=== PATIENT | male | born 1940 | race Caucasian/White ===

== ENCOUNTER 2023-12-06 13:42 | Inpatient (IN) | payer BC ==
[~2023-12-06] VITALS: Ht 172.7 cm; Wt 53.5 kg
[2023-12-06] VITALS (9 sets, daily range): BP systolic 73–93; BP diastolic 43–64; TEMP 97.3–98.4; O2SAT 96
[2023-12-06] MEDS: ONDANSETRON HCL/PF - ER 4 MG/2 ML VIAL IV ONE (13:50)
[2023-12-06] MEDS ORDERED: ONDANSETRON HCL/PF 4 MG/2 ML VIAL ONE (13:54)
[2023-12-06] MEDS: IV NS 0.9% 500 ML BAG IV ONE (13:55)
[2023-12-06 14:13] LABS: BASOPHILS # (AUTO) 0.1 K/uL (0.0-0.2); EOSINOPHILS # (AUTO) 0.4 K/uL (0.0-0.7); MONOCYTES # (AUTO) 0.5 K/uL (0.1-1.30)
[2023-12-06 14:22] LABS: BASOPHILS % (AUTO) 0.6 % (0.0-2.0); EOSINOPHILS % (AUTO) 4.5 % (0.0-6.0); HEMATOCRIT 21 % (39-51); LYMPHOCYTES # (AUTO) 2.5 K/uL (0.8-4.8); LYMPHOCYTES % (AUTO) 29.3 % (20.0-44.0); MEAN CORPUSCULAR HEMOGLOBIN 33 PG (26.0-33.0); MEAN CORPUSCULAR HGB CONC 32 g/dl (31.0-36.0); MEAN CORPUSCULAR VOLUME 103 fL (80-96); MONOCYTES % (AUTO) 6.1 % (2.0-12.0); NEUTROPHILS # (AUTO) 5.1 K/uL (1.8-8.9); NEUTROPHILS % (AUTO) 59.5 % (43.0-81.0); PLATELET COUNT (AUTO) 186 K/uL (150-450); RED BLOOD CELL COUNT(AUTO) 2.02 MIL/uL (4.5-6.0); RED CELL DISTRIBUTION WIDTH 16.9 % (11.5-15.0); WHITE BLOOD COUNT (AUTO) 8.6 K/uL (4.3-11.0)
[2023-12-06 14:27] LABS: INR 1.18 (0.91-1.10); PARTIAL THROMBOPLASTIN TIME 27.7 SEC (24.3-34.3); PROTHROMBIN TIME 12.4 SECS (9.2-11.1)
[2023-12-06 14:29] LABS: HEMOGLOBIN 6.7 g/dL (13.5-17.5)
[2023-12-06 14:31] LABS: ALANINE AMINOTRANSFERASE 11 U/L (12-78); ALBUMIN 2.1 g/dL (3.4-5.0); ALKALINE PHOSPHATASE 69 U/L (46-116); ASPARTATE AMINOTRANSFERASE 11 U/L (15-37); BILIRUBIN,DIRECT 0.1 mg/dL (0.0-0.2); BILIRUBIN,TOTAL 0.4 mg/dL (0.2-1.0); CALCIUM, SERUM 8.2 mg/dL (8.5-10.1); CARBON DIOXIDE 26 mmol/L (21-32); CHLORIDE 108 mmol/L (98-107); CREATININE 1.5 mg/dL (0.6-1.3); GLUCOSE 120 mg/dL (74-106); POTASSIUM 3.4 mmol/L (3.5-5.1); SODIUM SERUM 142 mmol/L (136-145); TOTAL PROTEIN, SERUM 5.6 g/dL (6.4-8.2); UREA NITROGEN, BLOOD 29 mg/dL (7-18)
[2023-12-06 14:43] LABS: LACTIC ACID 4.7 mmol/L (0.4-2.0)
[2023-12-06] MEDS ORDERED: MIRT-90 PO (15:06)
[2023-12-06] MEDS ORDERED: SENN-261 PO (15:06)
[2023-12-06] MEDS ORDERED: FENT1PAT4 TP (15:06)
[2023-12-06] MEDS ORDERED: APIX2.5T PO (15:06)
[2023-12-06] MEDS ORDERED: METO25TA20 PO (15:06)
[2023-12-06] MEDS: PIPERACILLIN /TAZOBACTAM 3.375 G in IV D5W 50 ML IV ONE (15:15)
[2023-12-06 15:24] LABS: APPEARANCE,URINE Clear (CLEAR); BILIRUBIN,URINE Negative (NEGATIVE); BLOOD, URINE Small Ery/uL (NEGATIVE); COLOR,URINE LIGHT YELLOW (YELLOW); KETONES,URINE Negative (NEGATIVE); LEUKOCYTE ESTERASE ,URINE Small (NEGATIVE); NITRITE, URINE Negative (NEGATIVE); PH,URINE 8.5 (5.0-8.0); PROTEIN,URINE 100 mg/dl (NEGATIVE); UGLUCOSE Negative (NEGATIVE); UROBILINOGEN,URINE 0.2 EU/dL (0.2)
[2023-12-06 15:44] LABS: ADD URINE CULTURE YES; BACTERIA,URINE Few /HPF (None Seen); WBC,URINE 51-80 /HPF (0-3)
[2023-12-06 15:45] LABS: SQUAMOUS EPITHELIAL CELL,UR Few /HPF (None Seen)
[2023-12-06] MEDS: ALBUMIN 25% 12.5 GM/50 ML BOTTLE IV ONE (16:30)
[2023-12-06] MEDS ORDERED: NALOXONE HCL 0.4 MG/ML AMPUL IV PRN (17:30)
[2023-12-06] MEDS: ALBUMIN 25% 25 GM in PREMIX 1 EA IV ONE (18:08)
[2023-12-06 18:30] LABS: EOSINOPHILS % (MANUAL) 3 % (0-4); LYMPHOCYTES % (MANUAL) 25 % (16-48); MONOCYTES % (MANUAL) 5 % (0-11.0); NEUTROPHILS % (MANUAL) 67 (42-76)
[2023-12-06 18:31] LABS: ANISOCYTOSIS 1+; PLATELET ESTIMATE ADEQU
[2023-12-06] MEDS: SENNOSIDES 8.6 MG TABLET PO SCH (21:50)
[2023-12-06] MEDS: MIRTAZAPINE 15 MG TABLET PO SCH (21:50)
[2023-12-06] MEDS: IV NS 0.9% 250 ML IV ONE (23:28)
[2023-12-07] VITALS (92 sets, daily range): BP systolic 66–151; BP diastolic 37–78; TEMP 97.5–98.6; O2SAT 92–100
[2023-12-07] MEDS: NOREPINEPHRINE 8MG/250ML RTU 250 ML IV ONE (02:18)
[2023-12-07] MEDS: NOREPINEPHRINE 8 MG in IV D5W 242 ML IV PRN (02:20)
[2023-12-07 07:47] LABS: BASOPHILS # (AUTO) 0.1 K/uL (0.0-0.2); BASOPHILS % (AUTO) 0.8 % (0.0-2.0); EOSINOPHILS # (AUTO) 0.5 K/uL (0.0-0.7); EOSINOPHILS % (AUTO) 5.3 % (0.0-6.0); LYMPHOCYTES # (AUTO) 1.2 K/uL (0.8-4.8); MEAN CORPUSCULAR HEMOGLOBIN 31 PG (26.0-33.0); MEAN CORPUSCULAR HGB CONC 33 g/dl (31.0-36.0); MEAN CORPUSCULAR VOLUME 95 fL (80-96); MONOCYTES # (AUTO) 0.6 K/uL (0.1-1.30); MONOCYTES % (AUTO) 6.4 % (2.0-12.0); NEUTROPHILS # (AUTO) 6.9 K/uL (1.8-8.9); NEUTROPHILS % (AUTO) 74.5 % (43.0-81.0); PLATELET COUNT (AUTO) 154 K/uL (150-450); RED CELL DISTRIBUTION WIDTH 24.5 % (11.5-15.0); WHITE BLOOD COUNT (AUTO) 9.2 K/uL (4.3-11.0)
[2023-12-07 07:52] LABS: RED BLOOD CELL COUNT(AUTO) 1.65 MIL/uL (4.5-6.0)
[2023-12-07 07:56] LABS: CALCIUM, SERUM 7.4 mg/dL (8.5-10.1); CARBON DIOXIDE 22 mmol/L (21-32); CHLORIDE 108 mmol/L (98-107); CREATININE 1.9 mg/dL (0.6-1.3); GLUCOSE 113 mg/dL (74-106); HEMATOCRIT 16 % (39-51); HEMOGLOBIN 5.1 g/dL (13.5-17.5); MAGNESIUM 1.5 mg/dL (1.8-2.4); PHOSPHORUS 3.1 mg/dL (2.5-4.9); POTASSIUM 4.6 mmol/L (3.5-5.1); SODIUM SERUM 140 mmol/L (136-145); UREA NITROGEN, BLOOD 58 mg/dL (7-18)
[2023-12-07] MEDS: METOPROLOL TARTRATE 25 MG TABLET PO SCH (08:50)
[2023-12-07] MEDS ORDERED: APIXABAN 2.5 MG TABLET PO SCH (09:00)
[2023-12-07 09:19] LABS: EOSINOPHILS % (MANUAL) 4 % (0-4); LYMPHOCYTES % (MANUAL) 12 % (16-48); MONOCYTES % (MANUAL) 6 % (0-11.0); NEUTROPHILS % (MANUAL) 78 (42-76)
[2023-12-07 09:20] LABS: ANISOCYTOSIS 2+; PLATELET ESTIMATE ADEQUATE
[2023-12-07] MEDS: Magnesium 1GM/D5W 100ML PREMIX 100 ML IV SCH (11:41)
[2023-12-07] MEDS: PANTOPRAZOLE 40 MG VIAL IV SCH (14:35)
[2023-12-07 21:20] LABS: HEMOGLOBIN 6.2 g/dL (13.5-17.5)
[2023-12-08] VITALS (109 sets, daily range): BP systolic 90–144; BP diastolic 46–108; TEMP 97.5–98.6; O2SAT 95–100
[2023-12-08 04:10] LABS: BASOPHILS # (AUTO) 0.1 K/uL (0.0-0.2); EOSINOPHILS # (AUTO) 0.5 K/uL (0.0-0.7); EOSINOPHILS % (AUTO) 8.7 % (0.0-6.0); LYMPHOCYTES # (AUTO) 0.5 K/uL (0.8-4.8); MEAN CORPUSCULAR HEMOGLOBIN 32 PG (26.0-33.0); MEAN CORPUSCULAR HGB CONC 34 g/dl (31.0-36.0); MEAN CORPUSCULAR VOLUME 93 fL (80-96); MONOCYTES # (AUTO) 0.5 K/uL (0.1-1.30); MONOCYTES % (AUTO) 7.9 % (2.0-12.0); NEUTROPHILS # (AUTO) 4.7 K/uL (1.8-8.9); NEUTROPHILS % (AUTO) 74.4 % (43.0-81.0); PLATELET COUNT (AUTO) 141 K/uL (150-450); RED CELL DISTRIBUTION WIDTH 21.2 % (11.5-15.0); WHITE BLOOD COUNT (AUTO) 6.3 K/uL (4.3-11.0)
[2023-12-08 04:16] LABS: RED BLOOD CELL COUNT(AUTO) 1.96 MIL/uL (4.5-6.0)
[2023-12-08 04:17] LABS: HEMATOCRIT 18 % (39-51); HEMOGLOBIN 6.2 g/dL (13.5-17.5)
[2023-12-08 04:29] LABS: CALCIUM, SERUM 7.6 mg/dL (8.5-10.1); CARBON DIOXIDE 24 mmol/L (21-32); CHLORIDE 106 mmol/L (98-107); CREATININE 2.4 mg/dL (0.6-1.3); GLUCOSE 139 mg/dL (74-106); MAGNESIUM 1.8 mg/dL (1.8-2.4); SODIUM SERUM 138 mmol/L (136-145); UREA NITROGEN, BLOOD 67 mg/dL (7-18)
[2023-12-08 05:14] LABS: EOSINOPHILS % (MANUAL) 9 % (0-4); LYMPHOCYTES % (MANUAL) 6 % (16-48); MONOCYTES % (MANUAL) 3 % (0-11.0); NEUTROPHILS % (MANUAL) 82 (42-76)
[2023-12-08 05:15] LABS: ANISOCYTOSIS 1+; OVALOCYTES 1+; PLATELET ESTIMATE ADEQUATE
[2023-12-08 08:25] LABS: IRON, SERUM 64 ug/dl (50-175); TOTAL IRON BINDING CAPACITY 103 ug/dl (250-450)
[2023-12-08] MEDS: PANTOPRAZOLE 40 MG VIAL IV SCH (08:35)
[2023-12-08 09:03] LABS: FERRITIN 2684 ng/mL (8-388)
[2023-12-08] MEDS: ACETAMINOPHEN 650 MG/SUPP.RECT RC PRN (16:49)
[2023-12-08] MEDS: HYDROMORPHONE 1 MG/1 ML DISP.SYRIN IV ONE (22:21)
[2023-12-09] VITALS (79 sets, daily range): BP systolic 72–126; BP diastolic 41–91; TEMP 97.5–98.2; O2SAT 94–100
[2023-12-09 06:01] LABS: CALCIUM, SERUM 6.8 mg/dL (8.5-10.1); CARBON DIOXIDE 23 mmol/L (21-32); CHLORIDE 107 mmol/L (98-107); CREATININE 2.6 mg/dL (0.6-1.3); GLUCOSE 90 mg/dL (74-106); MAGNESIUM 2.1 mg/dL (1.8-2.4); PHOSPHORUS 3.5 mg/dL (2.5-4.9); POTASSIUM 4.2 mmol/L (3.5-5.1); SODIUM SERUM 137 mmol/L (136-145); UREA NITROGEN, BLOOD 64 mg/dL (7-18)
[2023-12-09 06:11] LABS: HEPATITIS B CORE AB, IgM Negative (Negative); HEPATITIS B SURFACE AB Non Reactive (.)
[2023-12-09] MEDS: HYDROMORPHONE 1 MG/1 ML DISP.SYRIN IV ONE (06:50)
[2023-12-09] MEDS: FENTANYL TD PATCH (25 MCG/HR) 25 MCG/HR PATCH.TD72 TD SCH (08:35)
[2023-12-09 08:48] LABS: BASOPHILS % (AUTO) 0.7 % (0.0-2.0); EOSINOPHILS # (AUTO) 0.5 K/uL (0.0-0.7); EOSINOPHILS % (AUTO) 6.7 % (0.0-6.0); HEMATOCRIT 24 % (39-51); HEMOGLOBIN 7.9 g/dL (13.5-17.5); LYMPHOCYTES # (AUTO) 0.5 K/uL (0.8-4.8); LYMPHOCYTES % (AUTO) 6.6 % (20.0-44.0); MEAN CORPUSCULAR HEMOGLOBIN 29 PG (26.0-33.0); MEAN CORPUSCULAR HGB CONC 32 g/dl (31.0-36.0); MEAN CORPUSCULAR VOLUME 90 fL (80-96); MONOCYTES # (AUTO) 0.5 K/uL (0.1-1.30); MONOCYTES % (AUTO) 6.7 % (2.0-12.0); NEUTROPHILS # (AUTO) 5.8 K/uL (1.8-8.9); NEUTROPHILS % (AUTO) 79.3 % (43.0-81.0); PLATELET COUNT (AUTO) 124 K/uL (150-450); RED CELL DISTRIBUTION WIDTH 22.4 % (11.5-15.0); WHITE BLOOD COUNT (AUTO) 7.3 K/uL (4.3-11.0)
[2023-12-09] MEDS: HYDROCODONE/APAP 5/325MG TABLET PO PRN (12:06)
[2023-12-09] MEDS: HYDROCODONE/APAP 10/325MG TABLET PO PRN (13:27)
[2023-12-10] VITALS (26 sets, daily range): BP systolic 85–120; BP diastolic 47–80; TEMP 97.5–97.9; O2SAT 91–100
[2023-12-10 05:15] LABS: BASOPHILS % (AUTO) 0.6 % (0.0-2.0); EOSINOPHILS # (AUTO) 0.5 K/uL (0.0-0.7); EOSINOPHILS % (AUTO) 8.8 % (0.0-6.0); HEMATOCRIT 26 % (39-51); HEMOGLOBIN 8.4 g/dL (13.5-17.5); LYMPHOCYTES # (AUTO) 0.4 K/uL (0.8-4.8); LYMPHOCYTES % (AUTO) 7.1 % (20.0-44.0); MEAN CORPUSCULAR HEMOGLOBIN 30 PG (26.0-33.0); MEAN CORPUSCULAR HGB CONC 32 g/dl (31.0-36.0); MEAN CORPUSCULAR VOLUME 92 fL (80-96); MONOCYTES # (AUTO) 0.4 K/uL (0.1-1.30); MONOCYTES % (AUTO) 7.1 % (2.0-12.0); NEUTROPHILS # (AUTO) 4.2 K/uL (1.8-8.9); NEUTROPHILS % (AUTO) 76.4 % (43.0-81.0); PLATELET COUNT (AUTO) 117 K/uL (150-450); RED BLOOD CELL COUNT(AUTO) 2.82 MIL/uL (4.5-6.0); RED CELL DISTRIBUTION WIDTH 23.5 % (11.5-15.0); WHITE BLOOD COUNT (AUTO) 5.5 K/uL (4.3-11.0)
[2023-12-10 05:40] LABS: ALANINE AMINOTRANSFERASE < 6 U/L (12-78); ALBUMIN 2.1 g/dL (3.4-5.0); ALKALINE PHOSPHATASE 74 U/L (46-116); ASPARTATE AMINOTRANSFERASE 9 U/L (15-37); BILIRUBIN,TOTAL 0.3 mg/dL (0.2-1.0); CALCIUM, SERUM 7.7 mg/dL (8.5-10.1); CARBON DIOXIDE 22 mmol/L (21-32); CHLORIDE 109 mmol/L (98-107); CREATININE 3.1 mg/dL (0.6-1.3); GLUCOSE 70 mg/dL (74-106); MAGNESIUM 2.1 mg/dL (1.8-2.4); PHOSPHORUS 4.1 mg/dL (2.5-4.9); POTASSIUM 4.7 mmol/L (3.5-5.1); SODIUM SERUM 142 mmol/L (136-145); TOTAL PROTEIN, SERUM 5.3 g/dL (6.4-8.2); UREA NITROGEN, BLOOD 71 mg/dL (7-18)
[2023-12-10 10:17] LABS: INR 1.16 (0.91-1.10); PARTIAL THROMBOPLASTIN TIME 30.5 SEC (24.3-34.3); PROTHROMBIN TIME 12.2 SECS (9.2-11.1)
[2023-12-10] MEDS: MORPHINE SULFATE INJ 2 MG/ML DISP.SYRIN IV PRN (10:31)
[2023-12-10] MEDS ORDERED: ANESTHESIA TRAY IN PYXIS 1 EA TRAY MC ONE (12:36)
[2023-12-11] VITALS (7 sets, daily range): BP systolic 104–123; BP diastolic 52–64; TEMP 97.2–98.6; O2SAT 98–100
[2023-12-11 06:02] LABS: BASOPHILS % (AUTO) 0.6 % (0.0-2.0); EOSINOPHILS # (AUTO) 0.1 K/uL (0.0-0.7); EOSINOPHILS % (AUTO) 2.2 % (0.0-6.0); HEMATOCRIT 26 % (39-51); HEMOGLOBIN 8.5 g/dL (13.5-17.5); LYMPHOCYTES # (AUTO) 0.2 K/uL (0.8-4.8); MEAN CORPUSCULAR HEMOGLOBIN 30 PG (26.0-33.0); MEAN CORPUSCULAR HGB CONC 33 g/dl (31.0-36.0); MEAN CORPUSCULAR VOLUME 91 fL (80-96); MONOCYTES # (AUTO) 0.4 K/uL (0.1-1.30); MONOCYTES % (AUTO) 6.5 % (2.0-12.0); NEUTROPHILS # (AUTO) 5.4 K/uL (1.8-8.9); NEUTROPHILS % (AUTO) 86.7 % (43.0-81.0); PLATELET COUNT (AUTO) 117 K/uL (150-450); RED BLOOD CELL COUNT(AUTO) 2.87 MIL/uL (4.5-6.0); RED CELL DISTRIBUTION WIDTH 22.9 % (11.5-15.0); WHITE BLOOD COUNT (AUTO) 6.3 K/uL (4.3-11.0)
[2023-12-11 06:18] LABS: ALANINE AMINOTRANSFERASE 6 U/L (12-78); ALBUMIN 2.2 g/dL (3.4-5.0); ALKALINE PHOSPHATASE 83 U/L (46-116); ASPARTATE AMINOTRANSFERASE 10 U/L (15-37); BILIRUBIN,TOTAL 0.3 mg/dL (0.2-1.0); CALCIUM, SERUM 7.6 mg/dL (8.5-10.1); CARBON DIOXIDE 26 mmol/L (21-32); CHLORIDE 107 mmol/L (98-107); CREATININE 2.4 mg/dL (0.6-1.3); GLUCOSE 67 mg/dL (74-106); MAGNESIUM 1.9 mg/dL (1.8-2.4); PHOSPHORUS 3.2 mg/dL (2.5-4.9); SODIUM SERUM 142 mmol/L (136-145); TOTAL PROTEIN, SERUM 5.5 g/dL (6.4-8.2); UREA NITROGEN, BLOOD 48 mg/dL (7-18)
[2023-12-11] MEDS: PANTOPRAZOLE 40 MG TABLET.DR PO SCH (16:09)
[2023-12-12 07:30] VITALS: BP 105/66; TEMP 97.9; O2SAT 100
[2023-12-12 14:22] VITALS: O2SAT 98
[2023-12-12 16:00] VITALS: BP 90/52; TEMP 98.1; O2SAT 99
[2023-12-12] MEDS: APIXABAN 2.5 MG TABLET PO SCH (16:55)
[2023-12-12 20:00] VITALS: BP 96/53; TEMP 98.4; O2SAT 98
[2023-12-12 20:59] VITALS: BP 104/67
[2023-12-13 05:14] VITALS: O2SAT 98
[2023-12-13 07:52] VITALS: O2SAT 100
[2023-12-13 08:38] VITALS: BP 96/69; TEMP 97.5; O2SAT 100
[2023-12-13] MEDS: MIDODRINE HCL (5MG) 5 MG TABLET PO PRN (15:05)
[2023-12-13 16:11] VITALS: BP 104/54; TEMP 97.9; O2SAT 100
[2023-12-13] MEDS ORDERED: PANT40TA49 PO (16:46)
[2023-12-13 17:00] VITALS: BP 101/51
== END 2023-12-13 19:50 | disposition home or self-care (01) | DRG 811 ==
LOC: ER 13:45 → TELE1 14:48 → ICU 12-07 01:22 → TELE 12-10 18:35 → MED 12-11 14:42
PROVIDERS: ADMIT Nurse Practitioner Acute Care
PROC: 30233N1 Transfusion of Nonautologous Red Blood Cells into Peripheral Vein, Percutaneous Approach (ICD-10-PCS; principal; 2023-12-06)
PROC: 02HV33Z Insertion of Infusion Device into Superior Vena Cava, Percutaneous Approach (ICD-10-PCS; 2023-12-07)
PROC: B548ZZA Ultrasonography of Superior Vena Cava, Guidance (ICD-10-PCS; 2023-12-07)
PROC: 5A1D70Z Performance of Urinary Filtration, Intermittent, Less than 6 Hours Per Day (ICD-10-PCS; 2023-12-08)
PROC: 0DJ08ZZ Inspection of Upper Intestinal Tract, Via Natural or Artificial Opening Endoscopic (ICD-10-PCS; 2023-12-10)
DX: D64.9 Anemia, unspecified (principal); N18.6 End stage renal disease; I13.2 Hypertensive heart and chronic kidney disease with heart failure and with stage 5 chronic kidney disease, or end stage renal disease; C79.9 Secondary malignant neoplasm of unspecified site; I50.9 Heart failure, unspecified; I48.91 Unspecified atrial fibrillation; E83.42 Hypomagnesemia; Z99.2 Dependence on renal dialysis; G92.8 Other toxic encephalopathy; M89.8X9 Other specified disorders of bone, unspecified site; Z79.01 Long term (current) use of anticoagulants; Z85.51 Personal history of malignant neoplasm of bladder; I95.9 Hypotension, unspecified; E86.9 Volume depletion, unspecified; Z87.11 Personal history of peptic ulcer disease; Z79.899 Other long term (current) drug therapy; I95.3 Hypotension of hemodialysis
CPT/HCPCS: 36415; 71045-TC; 80048-TC; 80053-TC; 80076-TC; 81001; 82728-TC; 83540-TC; 83605-TC; 83735-TC; 84100-TC; 84484-TC; 85025-TC; 85027-TC; 85610-TC; 85730-TC; 86705; 86706; 86850-TC; 87040-TC; 87086-TC; 87340; 90935-TC; 93307-TC; 94761-TC; 94799-TC; 97110-TC; 97112-TC; 97116-TC; 97530-TC; A4216; A4217; A4223; G0378; J1171; J2270; J2405; J2470; J2543; J2704; J3475; J3490; J7030; J7040; J7050; J7060; P9016; P9047